=== PATIENT | female | born 1975 | race Caucasian/White ===

== ENCOUNTER 2018-01-06 04:42 | Emergency (ER) | payer OTHER ==
[~2018-01-06] VITALS: Ht 157.5 cm; Wt 68.9 kg
[~2018-01-06 04:42] MED LIST: APPEAREX2.5 MG; CALCIUM 600600 M1 PO; DEXILANT60 MG PO; IBUPROFEN800 MG PO; MOTRIN 600 MG600 MG PO; MULTIVITAMIN1 TA1 PO; OMEGA 31000 MG PO; PERCOCET 325 MG1 TA2 PO; PHENDIMETRAZINE PO; PRENATAL1 TA2 PO; PROTONIX 40MG T40 MG PO; SLOW FE45 MG; ZOFRAN4 M1 SL
--- NOTE | 2018-01-06 05:27 | ED GENERAL ADULT ---
History of Present Illness General Chief Complaint: General Adult Stated Complaint: " IM HAVING MAJOR ISSUES" MULTI COMP N/V FEVER Source: patient Exam Limitations: no limitations Vital Signs & Intake/Output Vital Signs & Intake/Output Vital Signs Date Time Temp Pulse Resp B/P B/P Pulse O2 O2 Flow FiO2 Mean Ox Delivery Rate 01/06 0645 96.4 64 18 142/73 99 Room Air 01/06 0545 99 Room Air 01/06 0507 98.2 98 18 144/81 100 Room Air Allergies Coded Allergies: NO KNOWN ALLERGIES (02/09/15) Reconcile Medications Ibuprofen 800 MG TABLET 800 MG PO Q6P PRN PAIN SCALE 4-6 Iron (Slow Fe) (Unknown Strength) TAB (Unknown Dose) DAILY SUPPLEMENT ( Reported) Omeprazole Magnesium (Prilosec Otc) 20 MG TABLET.DR 1 TAB PO DAILY stomach burning Ondansetron (Zofran Odt) 4 MG TAB.RAPDIS 1 TAB SL TID PRN nausea OXYCODONE HCL/ACETAMINOPHEN (Percocet 5-325 MG Tablet) 325 MG/5 MG TAB 1 TAB PO Q4P PRN PAIN SCALE 7-8 Pantoprazole Sodium (Protonix) 40 MG TABLET.DR 1 TAB PO DAILY AC HEART BURN ( Reported) PNV95/FERROUS FUMARATE/FA ( Formula Tablet) 28 MG IRON-800 MCG TABLET 1 TAB PO DAILY (Reported) Triage Note: PT STATES SHE HAD THE FLU 2 WEEKS AGO BUT GOT OVER IT THJEN SHE HAD VOMITING AND DIARRHEA BUT THAT WENT AWAY NOW SHE IS NAUSEAOUS,HAS DIARRHEA AND CHEST PAIN Triage Nurses Notes Reviewed? yes Onset: Gradual Duration: day(s): Timing: recent history Injury Environment: home Severity: moderate Modifying Factors: Improves With: rest. : No Patient currently breastfeeds: No HPI: 42 yo woman diagnosed with influenza last week, took tamiflu, notes that she mostly recovered, now presents with nasuea, several episodes of diarrhea this morning, myalgias, subjective temperature. She has had these symptoms for the past 2-3 days, but got worse tonight. She notes that her child had a diarrheal illness last week. She has no cough, wheeze, Past History Travel History Traveled to [place] past 21 day No Medical History Any Pertinent Medical History? see below for history Neurological: NONE EENT: NONE Cardiovascular: NONE Respiratory: NONE Gastrointestinal: HEART BURN Hepatic: NONE Renal: NONE Musculoskeletal: NONE Psychiatric: NONE Endocrine: NONE Blood Disorders: NONE Cancer(s): NONE EGG PROCESSOR/Reproductive: Tetanus Vaccine: 02/06/12 Surgical History Surgical History: none Psychosocial History Who do you live with Spouse Services at Home NONE What is your primary language Albanian Tobacco Use: Never used Family History Hx Contributory? No Review of Systems Review of Systems Constitutional: Reports: no symptoms. EENTM: Reports: no symptoms. Respiratory: Reports: no symptoms. Cardiovascular: Reports: no symptoms. GI: Reports: no symptoms. Genitourinary: Reports: no symptoms. Musculoskeletal: Reports: no symptoms. Skin: Reports: no symptoms. Neurological/Psychological: Reports: no symptoms. Hematologic/Endocrine: Reports: no symptoms. Immunologic/Allergic: Reports: no symptoms. All Other Systems: Reviewed and Negative Physical Exam Physical Exam General Appearance: well developed/nourished, alert, awake, comfortable, mild distress Head: atraumatic, normal appearance, active bleeding Eyes: Bilateral: normal appearance, PERRL, EOMI. Ears, Nose, Throat: normal pharynx, normal ENT inspection Neck: normal inspection, supple, full range of motion Respiratory: normal breath sounds, chest non-tender, no respiratory distress, quiet respiration, lungs clear Cardiovascular: regular rate/rhythm Gastrointestinal: normal bowel sounds, soft, non-tender Back: normal inspection, normal range of motion Extremities: normal inspection, normal capillary refill, normal range of motion Neurologic/Psych: no motor/sensory deficits, awake, alert, oriented x 3 Core Measures ACS in differential dx? No CVA/TIA Diagnosis: No Sepsis Present: No Sepsis Focused Exam Completed? No Progress Differential Diagnoses I considered the following diagnoses in my evaluation of the patient: viral syndrome vs other. Plan of Care: Orders Procedure Date/time Status TROPONIN LEVEL 01/06 527 Complete LIPASE 01/06 527 Complete HEPATIC FUNCTION PANEL 01/06 527 Complete CBC WITHOUT DIFFERENTIAL 01/06 527 Complete BASIC METABOLIC PANEL 01/06 527 Complete AMYLASE 01/06 527 Complete EKG 01/06 510 Active Laboratory Tests 01/06/18 0542: Anion Gap 11, Estimated GFR > 60, BUN/Creatinine Ratio 22.9, Glucose 107 H, Calcium 8.5, Total Bilirubin 0.5, Direct Bilirubin 0.2, AST 24, ALT 32, Alkaline Phosphatase 50, Troponin I < 0.01, Total Protein 6.5, Albumin 3.8, Amylase 56, Lipase 155, CBC w Diff NO MAN DIFF REQ, RBC 4.54, MCV 89.6, MCH 30.3, MCHC 33.8, RDW 12.0, MPV 7.3 L, Gran % 71.5, Lymphocytes % 17.7 L, Monocytes % 9.5 H, Eosinophils % 0.8, Basophils % 0.5, Absolute Granulocytes 4.0, Absolute Lymphocytes 1.0 L, Absolute Monocytes 0.5, Absolute Eosinophils 0, Absolute Basophils 0 Initial ED EKG: incomplete right bundle branch block Departure Departure Disposition: HOME OR SELF CARE Condition: Stable Clinical Impression Primary Impression: Abdominal pain Secondary Impressions: Gastroenteritis, Nausea and vomiting Referrals: Morteza Loco DO (PCP/Family) Departure Forms: Customer Survey General Discharge Information Prescriptions: Current Visit Scripts Ondansetron (Zofran Odt) 1 TAB SL TID PRN nausea #10 TAB Omeprazole Magnesium (Prilosec Otc) 1 TAB PO DAILY #30 TAB Comments 01/06/18, 6:50am... pt feeling better after supportive care/iv fluids.... labs benign... discussed at length... pt with likely viral gastro. she is safe for discharge with close follow up advised. Critical Care Note Critical Care Note Critical Care Time: non-applicable Referrals: Morteza Loco DO (PCP/Family) Departure Forms: Customer Survey General Discharge Information Prescriptions: Current Visit Scripts Ondansetron (Zofran Odt) 1 TAB SL TID PRN nausea #10 TAB Omeprazole Magnesium (Prilosec Otc) 1 TAB PO DAILY #30 TAB
[2018-01-06] MEDS ORDERED: PRILOSEC OTC20 M1 PO (05:52)
[2018-01-06] MEDS ORDERED: ZOFRAN ODT4 M1 SL (05:52)
[2018-01-06 05:53] LABS: ABSOLUTE BASOPHIL COUNT 0 /CUMM (0.0-0.2); ABSOLUTE EOSINOPHIL COUNT 0 /CUMM (0.0-0.7); ABSOLUTE MONOCYTE COUNT 0.5 /CUMM (0.10-0.60); BASOPHIL % 0.5 % (0.0-2.0); EOSINOPHIL % 0.8 % (0-5); GRANULOCYTE % 71.5 % (42.2-75.2); HEMATOCRIT 40.7 % (37-47); MEAN CORPUSCULAR HGB 30.3 PG (27.0-31.0); MEAN CORPUSCULAR HGB CONC 33.8 G/DL (33.0-37.0); MEAN CORPUSCULAR VOLUME 89.6 FL (81.0-99.0); MEAN PLATELET VOLUME 7.3 FL (7.4-10.4); PLATELET COUNT 234 /CUMM (130-400); RED BLOOD CELL CT 4.54 /CUMM (4.20-5.40); WHITE BLOOD CELL COUNT 5.6 /CUMM (4.8-10.8)
[2018-01-06 06:45] VITALS: BP 142/73
== END 2018-01-06 06:47 ==
LOC: ERH 04:42
PROVIDERS: Pediatrics
DX: K52.9 Noninfective gastroenteritis and colitis, unspecified (principal)
CPT/HCPCS: 93005; 93010; 96374; 96375; J1885; J2405